=== PATIENT | female | born 1945 | race Caucasian/White ===

== ENCOUNTER 2020-11-09 13:04 | Emergency (ER) | payer MEDICARE, SELFPAY ==
[2020-11-09 13:35] VITALS: BP 113/85; PULSE 85; RESP 16; TEMP 36.3; O2SAT 98
--- NOTE | 2020-11-09 14:03 | ED.GENADULT ---
HPI - General Adult General Chief complaint: Skin/Abscess/Foreign Body Stated complaint: I have an itch all over Source: patient Mode of arrival: ambulatory History of Present Illness HPI narrative: Patient presents for evaluation of generalized itching for the last 6 months. She has tried Benadryl topically and orally with minimal improvement in her symptoms. She states she has tried to schedule an appointment with her primary care provider but has been contacted multiple times to reschedule her appointment by her PCP. She indicates she did not change medication or any new topical products prior to the time of symptom onset. She does note approximately 3 to 4 months ago she went in for lab work with her primary care doctor and was admitted at [facility] for anemia. She has been compliant with Xarelto, furosemide, metoprolol that she takes for atrial fibrillation and congestive heart failure. She denies the presence of a rash. She does have a prescription for hydroxyzine that she takes at bedtime for insomnia/anxiety. She states that she has not noted any considerable change in her pruritus after taking that medication. Related Data Home Medications Medication Instructions Recorded Confirmed albuterol sulfate [Ventolin HFA] 1 inh INHALATION QID 11/09/20 11/09/20 budesonide-formoterol [Symbicort] 2 puff INHALATION Q12H 11/09/20 11/09/20 duloxetine 60 mg PO DAILY 11/09/20 11/09/20 furosemide 40 mg PO DAILY 11/09/20 11/09/20 hydroxyzine HCl 25 mg PO QID 11/09/20 11/09/20 metoprolol tartrate 25 mg PO DAILY 11/09/20 11/09/20 rivaroxaban [Xarelto] 20 mg PO DAILY 11/09/20 11/09/20 sertraline 100 mg PO DAILY 11/09/20 11/09/20 tramadol 50 mg PO HS 11/09/20 11/09/20 Allergies Allergy/AdvReac Type Severity Reaction Status Date / Time cyclobenzaprine Allergy Mild Dyspnea / Verified 11/09/20 13:47 SOB Review of Systems Review of Systems: Narrative: CONSTITUTIONAL: Denies fever, chills, or sweats. EYES: Denies visual changes, redness, or discharge. ENT: Denies rhinorrhea, congestion, sore throat, or otalgia. CARDIOVASCULAR: Denies chest pain, palpitations, or edema. RESPIRATORY: Denies cough or dyspnea. GASTROINTESTINAL: Denies abdominal pain, nausea, vomiting, or diarrhea. GENITOURINARY: Denies dysuria or hematuria. SKIN: Denies rash. Reports pruritus. MUSCULOSKELETAL: Denies back pain, joint pain, or myalgia. NEUROLOGIC: Denies headache, numbness, dizziness, or weakness. PSYCHIATRIC: Denies anxiety or depression. [facility] Past Medical History Medical History (Updated 11/09/20 @ 14:42 by VENTURA EasleyP, ) Anxiety Atrial fibrillation Congestive heart failure COPD (chronic obstructive pulmonary disease) Depression Hypertension Surgical History Surgical History (Updated 11/09/20 @ 14:06 by Moises Elise [facility], ) No pertinent past surgical history Family History Family History Father Gastric cancer Social History Social History Smoking packs per day: 1 Smoking cigarettes per day: 20.0 Smoking status: Current every day smoker Tobacco type: cigarettes Substance use: never Living arrangements: alone Gender identity (if verbalized by the patient): Female Exam Narrative: Exam Narrative: GENERAL: Well-appearing, well-nourished, and in no acute distress. HEAD: Normocephalic, atraumatic. EYES: PERRLA and EOMI. ENT: Nares clear, no rhinorrhea or epistaxis. Mucous membranes moist. Oropharynx without tonsillar hypertrophy exudate or other lesions. Bilateral TMs pearly babin nonbulging NECK: Supple. No adenopathy or masses. No carotid bruits or JVD CHEST: Clear to auscultation. No respiratory distress. No wheezes rales or rhonchi HEART: Irregularly irregular. Normal peripheral pulses. ABDOMEN: Soft, nontender, nondistended, normal active bowel sounds. EXTREM
--- NOTE | 2020-11-09 14:09 | ECG_ITS ---
Measurements Intervals [place] Rate: 101 P: [place]: 0 QRS: 72 QRSD: 85 T: -89 QT: 349 QTc: 453 Interpretive Statements ATRIAL FIBRILLATION WITH RAPID VENTRICULAR RESPONSE INCOMPLETE RIGHT BUNDLE BRANCH BLOCK VOLTAGE CRITERIA FOR LVH ST-T WAVE ABNORMALITY IN ANTEROLAT/INF LEADS- CONSIDER ISCHEMIA ABNORMAL ECG Electronically Signed On 11-09-2020 15:17:06 [employer] by Waldemar Salinas D.O.
== END 2020-11-09 14:48 | disposition home or self-care (01) ==
PROVIDERS: Emergency Provider Nurse Practitioner
DX: L29.9 Pruritus, unspecified (principal); I50.9 Heart failure, unspecified; I48.91 Unspecified atrial fibrillation; F17.210 Nicotine dependence, cigarettes, uncomplicated; F41.9 Anxiety disorder, unspecified; I11.0 Hypertensive heart disease with heart failure; J44.9 Chronic obstructive pulmonary disease, unspecified; F32.9 Major depressive disorder, single episode, unspecified; I45.10 Unspecified right bundle-branch block
CPT/HCPCS: 93005; 99203; G0463